=== PATIENT | female | born 1985 | race Two or more races ===

== ENCOUNTER 2019-07-20 13:15 | Emergency (ER) | payer MEDICAID ==
[~2019-07-20] VITALS: Ht 157.5 cm; Wt 83.0 kg
[2019-07-20 16:23] VITALS: BP 120/72
== END 2019-07-20 16:25 | disposition home or self-care (01) ==
LOC: ER 13:19
DX: O99.511 Diseases of the respiratory system complicating pregnancy, first trimester (principal); J40 Bronchitis, not specified as acute or chronic; Z3A.00 Weeks of gestation of pregnancy not specified